=== PATIENT | female | born 1980 | race Hispanic/Latino ===

== ENCOUNTER 2017-05-31 04:33 | Emergency (ER) | payer SELFPAY ==
[2017-05-31] MEDS ORDERED: DiphenhydrAMINE HCL 50 MG/ML VIAL ONE (04:51)
[2017-05-31] MEDS ORDERED: FAMOTIDINE/PF 20 MG/2 ML VIAL IV ONE (04:52)
[2017-05-31] MEDS ORDERED: METHYLPREDNISOLONE SOD SUCC 125MG/2ML VIAL ONE (04:53)
[2017-05-31] MEDS ORDERED: RACEPINEPHRINE HCL 2.25% 0.5 ML NEB SOLN ONE (05:04)
[2017-05-31] MEDS ORDERED: LIDOCAINE HCL 2% VISCOUS 15 ML UDCUP ONE (06:01)
[2017-05-31] MEDS ORDERED: IBUPROFEN 800 MG TAB ONE (06:02)
== END 2017-05-31 07:11 | disposition home or self-care (01) ==
LOC: EDH 04:33
DX: K12.2 Cellulitis and abscess of mouth (principal)
CPT/HCPCS: 87880; 94640; 96374; 96375; 99284; J1200; J2930; J3490

== ENCOUNTER 2022-05-23 11:04 | Emergency (ER) | payer OTHER ==
[~2022-05-23] VITALS: Ht 162.6 cm; Wt 127.0 kg
[2022-05-23 11:48] LABS: BASOPHILS % (AUTO) 0.9 % (0.0-5.0); EOSINOPHILS % (AUTO) 6.1 % (0.0-8.0); HEMATOCRIT 25.4 % (36-48); LYMPHOCYTES % (AUTO) 35.2 % (21.0-51.0); MEAN CORPUSCULAR HGB CONC 25.2 g/dL (32.0-36.0); MEAN CORPUSCULAR VOLUME 55.5 fL (79-99); MONOCYTES % (AUTO) 3.9 % (3.0-13.0); NEUTROPHILS % (AUTO) 53.3 % (40.0-77.0); PLATELET COUNT (AUTO) 521 K/uL (130-400); RED BLOOD CELL COUNT(AUTO) 4.58 MIL/uL (4.00-5.50); RED CELL DISTRIBUTION WIDTH 24.3 % (11.0-15.5); WHITE BLOOD COUNT (AUTO) 8.2 K/uL (4.8-10.8)
[2022-05-23 11:55] LABS: APPEARANCE,URINE CLOUDY (CLEAR); BILIRUBIN,URINE NEGATIVE (NEGATIVE); COLOR,URINE YELLOW (YELLOW); GLUCOSE, URINE (UA) NEGATIVE (NEGATIVE); KETONES,URINE NEGATIVE (NEGATIVE); LEUKOCYTE ESTERASE ,URINE 250 Leu/uL (NEGATIVE); NITRATE,URINE NEGATIVE (NEGATIVE); OCCULT BLOOD,URINE NEGATIVE (NEGATIVE); PROTEIN,URINE 50 mg/dL (NEGATIVE); UROBILINOGEN,URINE 0.2 mg/dL (0.2-1.0)
[2022-05-23 11:56] LABS: CREATININE 0.7 mg/dL (0.5-1.5); POTASSIUM 3.9 mmol/L (3.5-5.1)
[2022-05-23 12:00] LABS: ALBUMIN 3.3 g/dL (3.5-5.0)
[2022-05-23 12:03] LABS: HCG,QUALITATIVE URINE NEGATIVE (NEGATIVE)
[2022-05-23 12:08] LABS: BACTERIA,URINE FEW /HPF (None Seen); MUCUS,URINE MANY LPF (None Seen); SQUAMOUS EPITHELIAL CELL,UR MANY /HPF (0-2)
[2022-05-23] MEDS ORDERED: MORPHINE 2 MG SYG IVP ONE (13:00)
[2022-05-23] MEDS ORDERED: BENZONATATE 100 MG CAPSULE PO ONE (13:00)
[2022-05-23] MEDS ORDERED: CYCL-309 PO (17:35)
[2022-05-23] MEDS ORDERED: FERR-82 PO (17:35)
[2022-05-23] MEDS ORDERED: ACET-2079 PO (17:35)
[2022-05-23] MEDS ORDERED: BENZ-39 PO (17:35)
[2022-05-23 18:15] VITALS: BP 134/77
== END 2022-05-23 18:16 | disposition home or self-care (01) ==
LOC: EDH 11:04
DX: D50.9 Iron deficiency anemia, unspecified (principal); M54.50 Low back pain, unspecified; R05.9 Cough, unspecified
CPT/HCPCS: 99285; 36430; 74176; 96374; 71046; 82270; 80053; 85025; 86850; 86900; 86901; 86923; 87088; 81001; 81025; 36415; P9016